=== PATIENT | female | born 1990 | race American Indian/Alaskan Native ===

== ENCOUNTER 2018-10-19 08:11 | Outpatient (CLI) | payer OTHER | END 2018-10-19 08:12 | disposition home or self-care (01) | LOC: PAT 08:12 ==

== ENCOUNTER 2018-10-23 10:28 | Day surgery (SDC) | payer OTHER ==
[2018-10-19 08:49] VITALS: BMI 24.8
[2018-10-23 10:59] VITALS: TEMP 98.3
[2018-10-23] MEDS ORDERED: Propofol 10 mg/ml Inj (20 ML) ONE (12:45)
[2018-10-23] MEDS ORDERED: Midazolam 2 MG/2 ML VIAL ONE (12:45)
[2018-10-23] MEDS ORDERED: Bupivacaine 0.5% 50 ML IJ ONE (12:46)
[2018-10-23] MEDS ORDERED: Succinylcholine 200 mg/10 ml Inj IV ONE (12:49)
[2018-10-23] MEDS ORDERED: Rocuronium 10 mg/ml (5 ml) ONE (12:49)
[2018-10-23] MEDS: Bupivacaine 0.25% 50 ML INJ IJ ONE ×2 (13:18→13:50)
[2018-10-23] MEDS: Lidocaine 1% w Epi 1:100,000 Inj ONE ×2 (13:18→13:50)
[2018-10-23] MEDS ORDERED: Glycopyrrolate 0.2 mg/ml (2ml vial) ONE (13:55)
[2018-10-23] MEDS ORDERED: Neostigmine Methylsulfate 3mg/3ml Syringe IV ONE ×2 (13:55→14:10)
[2018-10-23] MEDS ORDERED: HYDROmorphone 1 mg/ml ISec IVP PRN (14:22)
--- NOTE | 2018-10-23 14:22 | PCM.SURG1 ---
Surgeon's Initial Post Op Note - Surgeon's Notes Surgeon: [facility] Director: Irvin PGY2 Type of Anesthesia: General Endo, Local Anesthesia Administered By: Dr. Cha Pre-Operative Diagnosis: Umbilical Hernia Operative Findings: See operative report Post-Operative Diagnosis: Same Operation Performed: Open Umbilical Hernia Repair Specimen/Specimens Removed: none Estimated Blood Loss: EBL {In ML}: 5 Blood Products Given: N/A Drains Used: No Drains Post-Op Condition: Good Date of Surgery/Procedure: 10/23/18 Time of Surgery/Procedure: 14:22
[2018-10-23] MEDS ORDERED: Lactated Ringer's 1,000 ML IV SCH (14:30)
--- NOTE | 2018-10-23 14:30 | PCM.OP ---
Operative Report - Operative Report Date of Surgery/Procedure: 10/23/18 Time of Surgery/Procedure: 13:00 Surgeon: Eufemia Zamora MD Roll Forming Machine Operator: Avtar Bryan DO (PGY2 resident) Anesthesia/Sedation: See main Pre-Operative Diagnosis: See main Post-Operative Diagnosis: See main Indication for Surgery: See main Operative Findings: 1.5cm umbilical hernia defect, containing pre-peritoneal fat Procedure/Operation Description: ANESTHESIA: General endotracheal; 1% lidocaine withepinephrine+ 0.25% Marcaine mix local anesthesia PRE-OPERATIVE DIAGNOSIS: Symptomatic umbilical hernia POSTOPERATIVE DIAGNOSIS: Same Indications: This is a 28 year old female who presented to my office with an symptomatic umbilical hernia, measuring approximately 1cm in max width. Because of the small size and possible wishes for future , I recommend primary repair without mesh. Further details of HPI in clinical chart. I have reviewed the risks and benefits of open primary umbilical hernia repairs in detail as documented in the clinic chart. Specifically, we have noted the risks of recurrence, infection, bowel injury, bleeding. She understands these risks and wishes to proceed. The patient consented to the procedure following these discussions and prior to the operation. PROCEDURES PERFORMED: 1) Open, primary umbilical hernia repair DESCRIPTION OF PROCEDURE: The patient was given a preoperative dose of Ancef 20 minutes before the incision. SCD boots were placed for DVT prophylaxis. Upper body warmer placed to maintain normothermia. Secure straps placed above the knees. Arms placed on arm boards out at 80 degress. All bony prominences were padded. A timeout was performed prior to incision. The abdomen was prepped and draped in sterile fashion. After being pre- anesthetized with local anesthesia, in the infraaumbilical midline, a circumlinear incision was made using an 15 blade scalpel and the umbilical raphe was identified. Blunt dissection was used to circumferrentially dissect around the umbilical stalk. Next the umbilical stalk was divided and immediately expo sing pre-peritoneal fat within hernia. The fascial edges were identified and sac opened. All content were reduced into the abdomen and the fascial edges freed of hernia sac using combination of blunt and sharp dissection. The final defect measured approximately 1.5-2cm in max width. The defect was then closed using interuppted 0-PDS suture. A total of 6 interrupted sutures were placed employing small bite technique, being sure not to incorporate underlying bowel or hernia contents. Once this was complete, the wound was irrigated. 15mL of local anesthesia was injection into deeper layers. The umbilical stalk was then re-implanted to abdominal fascia with a simple interrupted 3-0 vicry stitch. 10mL of lidocain was then injected into skin. The skin was then closed using 4- 0 monocryl and dermabond applied thereafter. After dermabond had dried, a pressure dressing with 4x4 gauze and tegaderm was applied. The patient tolerated the procedure well and was extubated and stable in r ecovery after the procedure. I was present throughout the entirety of the procedure. Sponge, needle and instrument counts were correct. Estimated Blood Loss: 5mL Complications: none Discharge & Condition: See main
[2018-10-23] MEDS ORDERED: HYDROmorphone 1 mg/ml ISec IVP ONE (14:51)
[2018-10-23] MEDS ORDERED: HYDROmorphone 1 mg/ml ISec ONE (14:51)
[2018-10-23 17:19] VITALS: BP 98/58; PULSE 78; RESP 18; O2SAT 98
[2018-10-23] MEDS ORDERED: Lactated Ringer's 500 ML IV SCH (19:45)
== END 2018-10-23 22:08 | disposition home or self-care (01) ==
LOC: SDS 10:28 → 3RNO 20:43 → SDS 22:08
PROVIDERS: ATTEND Surgery
DX: K42.9 Umbilical hernia without obstruction or gangrene (principal)
CPT/HCPCS: 49585; 84703; J0330; J0690; J1170; J1885; J2250; J2405; J2704; J2710; J3010; J7120 ×2